=== PATIENT | male | born 1970 | race Asian ===

== ENCOUNTER 2024-07-24 13:28 | Inpatient (IN) | payer OTHER ==
[~2024-07-24] VITALS: Ht 167.6 cm; Wt 65.6 kg
[2024-07-24] MEDS ORDERED: 0.9% SODIUM CHLORIDE 5 ML NEB SOLUTION NEB ONE (14:03)
[2024-07-24] MEDS: ALBUTEROL SULFATE 2.5 MG/0.5 ML NEB SOLUTION NEB ONE ×2 (14:05→21:15)
[2024-07-24 14:07] VITALS: PULSE 89; RESP 22; O2SAT 96
[2024-07-24 14:18] VITALS: PULSE 86; RESP 20; O2SAT 100
[2024-07-24 14:20] LABS: BASOPHILS % (AUTO) 0.3 % (0.0-2.0); EOSINOPHILS % (AUTO) 1.6 % (1.0-6.0); HEMOGLOBIN 15.6 g/dL (13.5-17.5); LYMPHOCYTES # (AUTO) 2.7 K/uL (1.0-4.8); LYMPHOCYTES % (AUTO) 20.8 % (22.0-44.0); MEAN CORPUSCULAR VOLUME 88 fL (80-100); MONOCYTES # (AUTO) 0.5 K/uL (0.1-1.0); MONOCYTES % (AUTO) 3.8 % (2.0-9.0); NEUTROPHILS # (AUTO) 9.4 K/uL (1.8-7.7); NEUTROPHILS % (AUTO) 73.5 % (40.0-70.0); PLATELET COUNT (AUTO) 192 K/uL (150-450); RED BLOOD CELL COUNT(AUTO) 5.21 MIL/uL (4.50-5.90); RED CELL DISTRIBUTION WIDTH 13.1 % (11.5-14.5); WHITE BLOOD COUNT (AUTO) 12.8 K/uL (4.5-11.0)
[2024-07-24 14:25] LABS: ANION GAP 9 mmol/L (8-16); CARBON DIOXIDE 25 mmol/L (22-29); CHLORIDE 102 mmol/L (98-107); CREATININE 1.05 mg/dL (0.60-1.30); GLUCOSE,RANDOM 185 mg/dL (70-110); POTASSIUM 3.4 mmol/L (3.5-5.1); SODIUM SERUM 136 mmol/L (136-145); UREA NITROGEN, BLOOD 16 mg/dL (7-18)
[2024-07-24 14:26] LABS: CALCIUM, TOTAL 8.3 mg/dL (8.8-10.5); GLOMERULAR FILTR. RATE CALC > 60 mL/min (>60)
[2024-07-24 14:37] LABS: ALCOHOL, BLOOD (SERUM) < 3 mg/dL (0-10)
[2024-07-24] MEDS: AMPICILLIN SODIUM/SULBACTAM NA 1.5 GM in SODIUM CHLORIDE 0.9% 50 ML IV ONE (18:26)
[2024-07-24] MEDS ORDERED: BISACODYL 10 MG RECTAL RECTAL SUPPOSITORY PR PRN (21:15)
[2024-07-24] MEDS ORDERED: MAGNESIUM HYDROXIDE SUSPENSION 30 ML UDCUP PO PRN (21:15)
[2024-07-24] MEDS: IPRATROPIUM BROMIDE 0.5 MG/2.5 ML NEB SOLUTION NEB ONE (21:15)
[2024-07-24] MEDS ORDERED: ALBUTEROL SULFATE 2.5 MG/0.5 ML NEB SOLUTION NEB PRN (21:15)
[2024-07-24] MEDS ORDERED: ZOLPIDEM TARTRATE 5 MG TABLET PO PRN (21:15)
[2024-07-24] MEDS ORDERED: ONDANSETRON HCL 4 MG/2 ML VIAL IVP PRN (21:15)
[2024-07-24] MEDS ORDERED: IPRATROPIUM BROMIDE 0.5 MG/2.5 ML NEB SOLUTION NEB PRN (21:15)
[2024-07-25] VITALS (15 sets, daily range): BP systolic 103–119; BP diastolic 64–69; PULSE 69–94; RESP 18–20; TEMP 97.9–98.4; O2SAT 92–100
[2024-07-25] MEDS: IPRATROPIUM BROMIDE 0.5 MG/2.5 ML NEB SOLUTION NEB SCH (00:02)
[2024-07-25] MEDS: ALBUTEROL SULFATE 2.5 MG/0.5 ML NEB SOLUTION NEB SCH (00:02)
[2024-07-25] MEDS: HEPARIN SODIUM,PORCINE 5,000 UNITS/ML VIAL SQ SCH (01:46)
[2024-07-25] MEDS: MethylPREDNISolone SOD SUCC 125 MG/2 ML VIAL IVP SCH (01:46)
[2024-07-25] MEDS ORDERED: SODIUM CHLORIDE 0.9% 500 ML IV ONE (02:02)
[2024-07-25] MEDS: PIPERACILLIN/TAZO 3.375 GM/D5W 50 ML IV SCH (02:03)
[2024-07-25 03:19] LABS: PH,URINE DRUG SCREEN 5.5 (5.0-8.0)
[2024-07-25 03:24] LABS: ALCOHOL, URINE DRUG SCREEN NEGATIVE (NEGATIVE); AMPHET/METH SCREEN,URINE NEGATIVE (NEGATIVE); BARBITURATE SCREEN, URINE NEGATIVE (NEGATIVE); BENZODIAZEPINES SCREEN,URINE NEGATIVE (NEGATIVE); CANNABINOID SCREEN,URINE NEGATIVE (NEGATIVE); COCAINE SCREEN,URINE NEGATIVE (NEGATIVE); METHADONE SCREEN, URINE NEGATIVE (NEGATIVE); OPIATE SCREEN,URINE NEGATIVE (NEGATIVE); PHENCYCLIDINE SCREEN,URINE NEGATIVE (NEGATIVE)
[2024-07-25] MEDS: PANTOPRAZOLE SODIUM 40 MG DR TABLET PO SCH (08:15)
[2024-07-26] VITALS (16 sets, daily range): BP systolic 92–124; BP diastolic 61–71; PULSE 58–101; RESP 18–22; TEMP 97.4–97.8; O2SAT 92–99
[2024-07-26 13:55] LABS: ANION GAP 12 mmol/L (8-16); CALCIUM, TOTAL 8.5 mg/dL (8.8-10.5); CARBON DIOXIDE 26 mmol/L (22-29); CHLORIDE 103 mmol/L (98-107); CREATININE 0.99 mg/dL (0.60-1.30); GLOMERULAR FILTR. RATE CALC > 60 mL/min (>60); GLUCOSE,RANDOM 163 mg/dL (70-110); POTASSIUM 3.3 mmol/L (3.5-5.1); SODIUM SERUM 141 mmol/L (136-145); UREA NITROGEN, BLOOD 21 mg/dL (7-18)
[2024-07-26] MEDS ORDERED: POTASSIUM CHL 10 MEQ/WATER 50 ML IV PRN (15:30)
[2024-07-26] MEDS: POTASSIUM CHLORIDE 20 MEQ ER TABLET PO PRN (17:23)
[2024-07-26] MEDS: ACETAMINOPHEN 325 MG TABLET PO PRN (21:05)
[2024-07-27] VITALS (16 sets, daily range): BP systolic 107–119; BP diastolic 66–70; PULSE 63–99; RESP 17–22; TEMP 97.5–98; O2SAT 92–98
[2024-07-27 07:37] LABS: ANION GAP 11 mmol/L (8-16); CALCIUM, TOTAL 8.5 mg/dL (8.8-10.5); CARBON DIOXIDE 26 mmol/L (22-29); CHLORIDE 102 mmol/L (98-107); CREATININE 0.94 mg/dL (0.60-1.30); GLOMERULAR FILTR. RATE CALC > 60 mL/min (>60); GLUCOSE,RANDOM 154 mg/dL (70-110); POTASSIUM 3.6 mmol/L (3.5-5.1); SODIUM SERUM 139 mmol/L (136-145); UREA NITROGEN, BLOOD 24 mg/dL (7-18)
[2024-07-27 17:17] LABS: BASOPHILS % (AUTO) 0.1 % (0.0-2.0); EOSINOPHILS % (AUTO) 0 % (1.0-6.0); HEMATOCRIT 40.1 % (41-53); HEMOGLOBIN 13.5 g/dL (13.5-17.5); LYMPHOCYTES # (AUTO) 0.7 K/uL (1.0-4.8); LYMPHOCYTES % (AUTO) 5.2 % (22.0-44.0); MEAN CORPUSCULAR HEMOGLOBIN 29.4 pg (26.0-34.0); MEAN CORPUSCULAR HGB CONC 33.6 G/dL (31.0-37.0); MEAN CORPUSCULAR VOLUME 88 fL (80-100); MONOCYTES # (AUTO) 0.5 K/uL (0.1-1.0); MONOCYTES % (AUTO) 3.9 % (2.0-9.0); NEUTROPHILS # (AUTO) 12.4 K/uL (1.8-7.7); PLATELET COUNT (AUTO) 180 K/uL (150-450); RED BLOOD CELL COUNT(AUTO) 4.58 MIL/uL (4.50-5.90); RED CELL DISTRIBUTION WIDTH 13.4 % (11.5-14.5); WHITE BLOOD COUNT (AUTO) 13.6 K/uL (4.5-11.0)
[2024-07-27 17:24] LABS: NEUTROPHILS % (AUTO) 90.8 % (40.0-70.0)
[2024-07-28] VITALS (10 sets, daily range): BP systolic 105–112; BP diastolic 61–73; PULSE 72–83; RESP 18–22; TEMP 97.6–98.4; O2SAT 91–100
[2024-07-28] MEDS: MONTELUKAST SODIUM 10 MG TABLET PO SCH (17:20)
[2024-07-28] MEDS: PredniSONE 20 MG TABLET PO SCH (20:46)
[2024-07-29] MEDS ORDERED: SODIUM CHLORIDE 0.9% 500 ML IV ONE (01:52)
[2024-07-29 04:19] VITALS: BP 116/69; PULSE 66; RESP 18; TEMP 97.9; O2SAT 97
[2024-07-29 07:00] VITALS: PULSE 70; PULSE 75; RESP 16; O2SAT 98; O2SAT 99
[2024-07-29 08:04] VITALS: BP 113/76; PULSE 65; RESP 18; TEMP 97.8; O2SAT 92
[2024-07-29 11:00] VITALS: PULSE 78; RESP 16; O2SAT 100
[2024-07-29] MEDS ORDERED: PRED-554 PO (13:18)
[2024-07-29] MEDS ORDERED: AMOX-457 PO (13:18)
[2024-07-29] MEDS ORDERED: MONT-35 PO (13:18)
[2024-07-29] MEDS ORDERED: BUDE10.7 IH (13:19)
[2024-07-29] MEDS ORDERED: ALBU18HF12 IH (13:20)
[2024-07-29 15:00] VITALS: PULSE 72; RESP 16; O2SAT 100
== END 2024-07-29 14:55 | disposition home or self-care (01) | DRG 812 ==
LOC: EDBD 13:33 → EMS 13:33 → EDH 21:30 → 4E 07-25 01:12
PROVIDERS: ADMIT Hospitalist; ATTEND Hospitalist
DX: T40.411A Poisoning by fentanyl or fentanyl analogs, accidental (unintentional), initial encounter (principal); J69.0 Pneumonitis due to inhalation of food and vomit; J45.901 Unspecified asthma with (acute) exacerbation; F17.200 Nicotine dependence, unspecified, uncomplicated; J44.9 Chronic obstructive pulmonary disease, unspecified; E87.6 Hypokalemia; Y92.89 Other specified places as the place of occurrence of the external cause
CPT/HCPCS: 71045; 80048; 80307; 84132; 85025; 87040; 94640; 99285; G0378; G0480; J0295; J1644; J2543; J2919; J7040; J7050; 36415-L1; 36415-TC; J7613